=== PATIENT | female | born 1965 | race African-American/Black ===

== ENCOUNTER 2024-09-13 10:35 | Outpatient (REF) | payer OTHER, MEDICARE, MEDICAID, SELFPAY ==
[2024-09-13 11:37] LABS: Hematocrit 43.5 % (37.0-47.0); Hemoglobin 14.1 g/dl (12.0-16.0); Mean Corpuscular HGB Conc 32.4 g/dl (31.0-35.0); Mean Corpuscular Hemoglobin 30.5 pg (27.0-33.0); Mean Corpuscular Volume 94.2 fL (80.0-98.0); Mean Platelet Volume 8.8 fL (9.4-12.3); Platelet Count 344 X10*3/uL (160-400); Red Blood Count 4.62 X10*6/uL (4.20-5.50); Red Cell Distribution Width 13.8 % (11.0-16.0); White Blood Count 3.3 X10*3/uL (4.8-10.8)
[2024-09-13 13:14] LABS: Alanine Aminotransferase 30 U/L (0-31); Albumin Level 4.3 g/dL (3.5-5.0); Alkaline Phosphatase 70 U/L (39-117); Aspartate Amino Transferase 30 U/L (5-31); Bilirubin Direct 0.1 mg/dL (0.0-0.5); Bilirubin Total 0.4 mg/dL (0.0-1.0); Total Protein 7.3 g/dL (6.5-8.0)
== END 2024-09-13 10:36 | disposition home or self-care (01) ==
LOC: HO.LAB 10:35
PROVIDERS: PCP Internal Medicine; Visit Provider Psychiatry & Neurology Neurology
DX: G36.0 Neuromyelitis optica [Devic] (principal)
CPT/HCPCS: 36415; 80076; 85027

== ENCOUNTER 2025-04-14 10:29 | Outpatient (AMB) | payer MEDICARE, MEDICAID, SELFPAY ==
--- NOTE | 2025-04-14 10:44 | A.OFFVIS_ITS ---
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 Her neurological problem started in 1999 when she developed blurred vision in both eyes. In 2001, she devloped low back pain with numbness and paralysis of both legs. She was admitted at [facility] for a month and then went to [facility] for two months. She said that she had some recovery and she could stand with a walker and could take couple of steps. She was given diagnosis of Devic's syndrome in 2006. Since then, she has been treated with Imuran and had plasmapharesis couple of times to manage replapses. She used to see Dr. Garcia. MRI of brain, cervical, and thoracic spine were done in May 2024, which did not reveal any brain abnormality. Cervical and thoracic spine MRIs revealed cord atrophy but no diefinite cord signal abnormality. Her serum AQP4 titre was high and anti MOG was negative. She is presenting with chronic pain. She reports a persistent burning sensation that originates from her rib cage and extends down to her toes. The pain is described as continuous and has been present for an extended period. She notes that previous pharmacological interventions, including gabapentin, carbamazepine, opioids, and Durogesic patches, have been ineffective in managing the pain. Additionally, the use of OxyContin was mentioned to cause drowsiness and constipation without significant pain relief. The patient has experimented with alternative therapies such as cannabis edibles to aid in sleep, noting some improvement in falling asleep, though the pain remains ongoing. The pain has reportedly necessitated a referral consideration for a spinal cord stimulator, although documentation of previous management is required before proceeding. The patient has also been managing symptoms associated with menopause, specifically episodes of being hot and sweaty, contributing to disrupted sleep. The onset of these menopausal symptoms is unspecified. Neurogenic bladder requiring intermittent straight catheterization five times daily due to incomplete bladder emptying was discussed. The patient has mentioned that constipation exacerbates her bladder management routine. [facility] Medical History (Updated 04/14/25 @ 10:53 by Gary Quiñonez MD) Myelopathy Paraplegia Spastic bladder Neuromyelitis Review of Systems Const Details: - Musculoskeletal: Reports chronic pain, burning sensation from rib cage to toes. - Neurological: Reports managing neurogenic bladder, intermittent catheterization; denies improvement with previously tried medications like ga bapentin and opioids. - Genitourinary: Reports bladder control through self-catheterization. - Endocrine: Reports symptoms of menopause including hot flashes and sweating. - Sleep: Reports difficulty sleeping, describes it as so, so due to menopause. Physical Exam Neuro Other: Mental Status: Alert and oriented to person, place, and time. Normal attention. Normal spontaneous speech, fluency, and comprehension. No obvious issues with mood and memory. Affect is appropriate. Cranial Nerves: CN II: Visual quevedo full to confrontation, visual acuity intact. CN III, IV, : Pupils equal, round, reactive to light and accommodation. Extraocular movements are normal. CN V: Facial sensation is normal. CN VII: Facial movements symmetrical. CN VIII: Hearing intact to bedside conversation is normal. CN IX, X: Palate elevates symmetrically. CN XI: Shoulder shrug and head turn symmetrical. CN XII: Tongue midline without atrophy or fasciculations. She is in wheel chair with paraparesis, left leg worse than right. Extrapyramidal: Full facial expressions and blinking. No rigidity. Movements are appropriate with no tremor or abnormality. Speech: Normal; no dysarthria or tremor. Assessment & Plan Assessment & Plan (1) Neuromyelitis optica spectrum disorder: Comment: Labs at [facility] in May 2024: Anti AQP4 High, Anti MOG ok. MRI brain [facility] at [place] in May 2024: OK MRI C + T spine [facility] at [facility] in May 2024: Lower cervical and upper thoracic cord atrophy. I am not sure if there is any cord signal abnormality more than the central canal. MRI T spine at [facility] in 2004: C and T spinal cord hyperintense irreg signal reported but I am not sure about it, and thinning of lower cervical and thoracic cord MRI C spine in 2011: Mildly prominent central canal. Code(s): G36.0 - Neuromyelitis optica [Devic] Category: Medical (2) Neuropathic pain: Comment: Meds tried: Gabapentin, Carbamazepine, Oxycontin, Fentanyl, amitriptyline Code(s): M79.2 - Neuralgia and neuritis, unspecified Category: Medical Plan Impression: a: Neuromyelitis optica syndrome b: Paraplegia from above c: Neuropathic pain from above Rec: a: Azathioprine 50mg bid b: CBC/LFTs c: Trial of duloxetine or pregabilin I discussed with the patient the ongoing management of her chronic pain syndrome, emphasizing the importance of documenting previous pain management trials to support consideration for a spinal cord stimulator referral. I proposed trying duloxetine (Cymbalta) for a month to assess efficacy, with plans to switch to pregabalin if needed. These discussions included the realistic expectations of the treatments in terms of symptom relief. Additionally, the approach for neurogenic bladder relies on continued self-catheterization, with attention to possible exacerbation by constipation, potentially requiring modification of her bowel routine. Return precautions and follow-up outlines were provided should treatments become ineffective, unchanged, or if complications arise. Orders: Orders Complete Blood Count Auto Diff Today G36.0 - Neuromyelitis optica [Devic] Liver Panel Today G36.0 - Neuromyelitis optica [Devic] Medications: New duloxetine 20 mg PO BID 60 caps 0RF Coding Level of Care Code Est Pt Level 5 (07327) Diagnoses Neuromyelitis optica spectrum disorder G36.0 Neuropathic pain M79.2
--- OUTSIDE RECORDS SUMMARY | 2025-04-14 13:00 | XMS_ITS | Clinical Summary ---
Author Organization [facility] [address] [facility] Address [address] [place] [address] Phone Care Team Providers Care Corporate Giving Manager Name Role Phone Christophe Infante MD Primary Care Provider [phone] Allergies No known active allergies Medications azaTHIOprine (IMURAN) 50 mg tablet Take 1 tablet (50 mg total) by mouth. 4 Active Yuvafem 10 mcg tablet vaginal tablet INSERT 1 TABLET VAGINALLY 2 TIMES A WEEK 4 Active levothyroxine (SYNTHROID, LEVOTHROID) 125 mcg tablet Take 1 tablet (125 mcg total) by mouth 1 (one) time each day. 4 Active lisinopril (PRINIVIL,ZESTRI L) 40 mg tablet Take 1 tablet (40 mg total) by mouth 1 (one) time each day. 4 Active methenamine hippurate (HIPREX) 1 gram tablet 1 TABLET TWICE A DAY 4 Active Myrbetriq 25 mg 24 hr tablet Take 1 tablet (25 mg total) by mouth 1 (one) time each day in the morning. 4 Active Linzess 290 mcg capsuleIndicatio ns:Constipation, unspecified constipation type Take 1 capsule (290 mcg total) by mouth 1 (one) time each day. 90 each 1 5 025 Active polyethylene glycol (Golytely) 236-22.74-6.74 -5.86 gram solution Take 4L by mouth once for one dose. May substitue any PEG. Starting at 2PM the day before your procedure drink 1 8oz glasses at your own pace until you complete half of the gallon. Finish 2nd half of the gallon at 8PM. 4000 mL 5 Active bisacodyL (DULCOLAX) 5 mg EC tablet Take 2 tablets by mouth right before beginning bowel prep. See instructions provided by the office 2 tablet 5 Active doxycycline (VIBRAMYCIN) 100 mg capsule TAKE ONE CAPSULE BY MOUTH TWICE DAILY WITH FOOD FOR 3 MONTHS Active Encounters Date Type Department Care Team Description 03/11/2025 12:44 PM EDT Anesthesia Event [facility] Endoscopy [address] [place] [id number] Radhika Ardon MD 03/11/2025 12:04 PM EDT - 03/11/2025 11:59 PM EDT Hospital Encounter [facility] Endoscopy [address] [place] [phone] Isrrael Leggett MD Gomes, Sheldon B, MD Claudio, Raymund, CRNA Hx of colonic polyps; Family hx of colon cancer; Family history of colonic polyps Discharge Disposition: Home or Self Care from Last 3 Months Surgical History Surgery Date Site/Laterality Comments HYSTERECTOMY PARATHYROIDECTOMY COLONOSCOPY Medical History Medical History Date Comments Hyperlipidemia Devic's disease (CMS/HCC V24, CMS/[facility] V28) History of urinary self-catheterization Graves disease Family history of colon cancer Colon polyp Social History Tobacco Use Types Packs/Day Years Used Date Smoking Tobacco: Never Assessed Comments No Sex and Gender Information Value Date Recorded Sex Assigned at Female 05/31/2024 3:38 PM EST Legal Sex Female 8:01 AM EST Gender Identity Female 05/31/2024 3:38 PM EST Sexual Orientation Not on file Obstetrics History Last Filed Vital Signs Vital Sign Reading Time Taken Comments Blood Pressure 140/90 03/11/2025 1:29 PM EDT Pulse 82 03/11/2025 1:29 PM EDT Temperature 36.1 C (97 F) 03/11/2025 1:09 PM EDT Respiratory Rate 16 03/11/2025 1:29 PM EDT Oxygen Saturation 98% 03/11/2025 1:29 PM EDT Inhaled Oxygen Concentration - - Weight 76.7 kg (169 lb) 03/11/2025 12:36 PM EDT Height 165.1 cm (5' 5 ) 03/11/2025 12:36 PM EDT Body Mass Index 28.12 03/11/2025 12:36 PM EDT Plan of Treatment Health Maintenance Due Date Last Done Comments Breast Cancer Screening 1965 DTaP,Tdap,and Td Vaccines (1 - Tdap) 1985 Hepatitis B Vaccines (1 of 3 - 19+ 3-dose series) 1985 Cervical Cancer Screening: Pap Smear 11/02/1987 RSV Immunization Adult Patients (1 - Risk 50-74 years 1-dose series) 2016 HIV Screening 07/30/2023 Hepatitis C Screening 07/30/2023 Medicare Annual Wellness Visit 07/30/2023 Social Influencers of Health Screening 07/30/2023 Depression Screening 06/30/2024 COVID-19 Vaccine ( season) 2025 04/11/2023, 07/11/2022, 09/28/2021, Additional history exists Influenza Vaccine (#1) 2025 , 07/11/2022, 03/19/2021, Additional history exists Colorectal Cancer Screening: Colonoscopy 03/11/2030 03/11/2025, 02/25/2025 Zoster Vaccines Completed 01/16/2018, 11/10/2017 Pneumococcal Vaccine: 50+ Years Completed 03/04/2024, 03/23/2019, 06/30/2011, Additional history exists Colorectal Cancer Screening: CT Colonography Discontinued 05/03/2024 HIB Vaccines Aged Out No longer eligi ble based on patient's age to complete this topic HPV Vaccines Aged Out No longer eligi ble based on patient's age to complete this topic Hepatitis A Vaccines Aged Out No long er eligible based on patient's age to complete this topic IPV Vaccines Aged Out No longer eligi ble based on patient's age to complete this topic MMR Vaccines Aged Out No longer eligi ble based on patient's age to complete this topic Meningococcal ACWY Vaccine Aged Out N o longer eligible based on patient's age to complete this topic Meningococcal B Vaccine Aged Out No l onger eligible based on patient's age to complete this topic RSV Immunization Patients Under 20 months Aged Out No longer eligible based on patient's age to complete this topic Varicella Vaccines Aged Out No longer eligible based on patient's age to complete this topic Procedures Procedure Name Priority Date/Time Associated Diagnosis Comments COLONOSCOPY Routine 03/11/2025 1:08 PM EDT Hx of colonic polyps Family hx of colon cancer Family history of colonic polyps TISSUE EXAM Routine 03/11/2025 1:01 PM EDT Hx of colonic polyps Family hx of colon cancer Family history of colonic polyps EXTERNAL COLONOSCOPY REPORT Routine 02/25/2025 10:[address] COLONOGRAPHY SCREENING Routine 05/03/2024 Colon cancer screening from Last 3 Months or Most Recently Relevant to Health Maintenance Results * COLONOSCOPY Anesthesia - MAC; [facility] ENDOSCOPY (03/11/2025 1:08 PM EDT) Anatomical Region Laterality Modality Other 03/11/2025 12:3 5 PM EDT Impressions 03/11/2025 1:09 PM EDT - Nodular mucosa in the proximal rectum and in the recto-sigmoid colon. Biopsied. - Diverticulosis in the sigmoid colon. - Non-bleeding internal hemorrhoids. - The examination was otherwise normal on direct and retroflexion views. Recommendation: - Discharge patient to home. - Resume previous diet. - Continue present medications. - Await pathology results. - Repeat colonoscopy for surveillance based on pathology results. - Return to GI office PRN. Narrative 03/11/2025 1:09 PM EDT [facility] GI Patient Name: Julius Gonzalez Procedure Date: 03/11/2025 12:35 PM Date of : 1965 Age: 59 Room: ROOM 14 Gender: Female Note Status: Finalized Attending MD: Isrrael Leggett MD, Procedure Date No Time: 03/11/2025 Procedure: Colonoscopy Indications: Screening for colorectal malignant neoplasm Providers: Isrrael Leggett MD Referring MD: Isrrael Leggett MD Medicines: Monitored Anesthesia Care Complications: No immediate complications. Estimated Blood Loss: Estimated blood loss: none. Procedure: Pre-Anesthesia Assessment: - ASA Grade Assessment: II - A patient with mild systemic disease. - After reviewing the risks and benefits, the patient was deemed in satisfactory condition to undergo the procedure. After I obtained informed consent, the scope was passed under direct vision. Throughout the procedure, the patient's blood pressure, pulse, and oxygen saturations were monitored continuously.The Olympus Pediatric Colonoscope was introduced through the anus and advanced to the cecum, identified by appendiceal orifice and ileocecal valve. The colonoscopy was performed without difficulty. The patient tolerated the procedure well. The quality of the bowel preparation was adequate. Findings: A patchy area of severely nodular mucosa was found in the proximal rectum and in the recto-sigmoid colon. Biopsies were taken with a cold forceps for histology. Estimated blood loss was minimal. Scattered small-mouthed diverticula were found in the sigmoid colon. Non-bleeding internal hemorrhoids were found during retroflexion. The hemorrhoids were small. The exam was otherwise without abnormality on direct and retroflexion views. Procedure Code(s): --- Professional --- 67016, Colonoscopy, flexible; with biopsy, single or multiple Diagnosis Code(s): --- Professional --- Z12.11, Encounter for screening for malignant neoplasm of colon CPT copyright 2020 [employer]. All rights reserved. The codes documented in this report are preliminary and upon retail leasing agent review may be revised to meet current compliance requirements. Isrrael Leggett MD 03/11/2025 1:09:20 PM This report has been signed electronically.Isrrael Leggett MD Number of Addenda: 0 Note Initiated On: 03/11/2025 12:35 PM Scope In: Scope Out: Endoscopy Department at [facility] - [address] [place] [id number] Procedure Note Isrrael Leggett MD - 03/11/2025 [facility] GI Patient Name: Julius Gonzalez Procedure Date: 03/11/2025 12:35 PM Date of : 1965 Age: 59 Room: ROOM 14 Gender: Female Note Status: Finalized Attending MD: Isrrael Leggett MD, Procedure Date No Time: 03/11/2025 Procedure: Colonoscopy Indications: Screening for colorectal malignant neoplasm Providers: Isrrael Leggett MD Referring MD: Isrrael Leggett MD Medicines: Monitored Anesthesia Care Complications: No immediate complications. Estimated Blood Loss: Estimated blood loss: none. Procedure: Pre-Anesthesia Assessment: - ASA Grade Assessment: II - A patient with mild systemic disease. - After reviewing the risks and benefits, thepatient was deemed in satisfactory condition to undergo the procedure. After I obtained informed consent, the scope was passed under direct vision. Throughout theprocedure, the patient's blood pressure, pulse, and oxygen saturations were monitored continuously.The Olympus Pediatric Colonoscope was introduced through theanus and advanced to the cecum, identified byappendiceal orifice and ileocecal valve. The colonoscopy was performed without difficulty. The patient tolerated the procedure well. The quality of the bowel preparation was adequate. Findings: A patchy area of severely nodular mucosa was foundin the proximal rectum and in the recto-sigmoid colon. Biopsies were taken with a cold forceps forhistology. Estimated blood loss was minimal. Scattered small-mouthed diverticula were found inthe sigmoid colon. Non-bleeding internal hemorrhoids were found during retroflexion. The hemorrhoids were small. The exam was otherwise without abnormality ondirect and retroflexion views. Procedure Code(s): --- Professional --- 01783, Colonoscopy, flexible; with biopsy, singleor multiple Diagnosis Code(s): --- Professional --- Z12.11, Encounter for screening for malignantneoplasm of colon CPT copyright 2020 [employer]. All rights reserved. The codes documented in this report are preliminary and upon retail leasing agent reviewmay be revised to meet current compliance requirements. Isrrael Leggett MD 03/11/2025 1:09:20 PM This report has been signed electronically.Isrrael Leggett MD Number of Addenda: 0 Note Initiated On: 03/11/2025 12:35 PM Scope In: Scope Out: Endoscopy Department at [facility] - [address] [place] [phone] IMPRESSION: - Nodular mucosa in the proximal rectum and in the recto-sigmoid colon. Biopsied. - Diverticulosis in the sigmoid colon. - Non-bleeding internal hemorrhoids. - The examination was otherwise normal on directand retroflexion views. Recommendation: - Discharge patient to home. - Resume previous diet. - Continue present medications. - Await pathology results. - Repeat colonoscopy for surveillance based on pathology results. - Return to GI office PRN. us Isrrael Leggett MD GI~PROCEDURE ORDERABLES Final Result * Tissue exam (03/11/2025 1:01 PM EDT) Final Diagnosis Colon, nodular area, rectal biopsies: Ulcerated colonic mucosa with acute inflammation, abundant fibrinopurulent exudate, and prolapse like changes. No infectious etiology identified. No dysplasia or neoplasia identified. 03/14/2025 3:45 PM EDT [facility] Comment The differential diagnosis includes mechanical, infectious, and iatrogenic etiologies. Scattered bacterial colonies are identified, but are difficult to ascribe meaning to in the rectal mucosa. No viral cytopathic changes are identified. Correlation with clinical course is recommended. 03/14/2025 3:45 PM EDT [facility] Gross Description A. Colon, nodular rectal biopsies: Labeled nodular r colon . Received in formalin is a 0.7 x 0.25 x 0.1 cm aggregate of soft to friable simms-white simms-pink tissue fragments, which are wrapped in paper and submitted in toto in one cassette, multiple pieces, multiple levels. TS 03/14/2025 3:45 PM EDT [facility] Disclaimer Unless otherwise specified, all tissue is 10% NB formalin fixed and paraffin embedded. 03/14/2025 3:45 PM EDT [facility] Tissue Colon structure / Unknown 03/11/2025 1:01 PM EDT 03/11/2025 3:00 PM EDT Isrrael Leggett MD LAB PATHOLOGY ORDERABLES Chiara l Result [facility] [address] [place] [address], * External Colonoscopy Report (02/25/2025 10:50 AM EDT) Anatomical Region Laterality Modality Endoscopy Historical Provider GI~PROCEDURE ORDERABLES F inal Result * CT Colonography Screening (05/03/2024) Anatomical Region Laterality Modality Body Computed Tomogra phy Michael Rizo MD IMG CT PROCEDURES Final Result from Last 3 Months or Most Recently Relevant to Health Maintenance Insurance MEDICARE [place]ICAID - [place] [employer] Care Teams Corporate Giving Manager Relationship Specialty Start Date End Date Christophe Infante MD [address] [place] [phone] PCP - General Internal Medicine 03/01/25
--- OUTSIDE RECORDS SUMMARY | 2025-04-14 13:00 | XMS_ITS | Patient Health Record ---
Author Organization [facility] Address [address] [place] [address] Care Team Providers Care Proctologist Name Role Phone Christophe Infante MD Primary Care Provider Unavailab epi BurtonElizli Unavailable [phone] Allergies No Known Allergies Results Component Value Reference Range Notes PDF Report Reviewed date:07/16/2024 02:09:48 PM Interpretation: Performing Lab:[facility], [address] [place] [address], Phone - [phone], Director - Kinsey Notes/Report: Clinical Information:FAST 12-14 HOURS [id number] Reviewed date:07/16/2024 02:11:17 PM Interpretation: Performing Lab:[facility], [address] [place] [address], Phone - [phone], Director - Kinsey Notes/Report: Clinical Information:FAST 12-14 HOURS TSH 3.740 0.450-4.500 uIU/mL CBC With Differential/Platel et-[id number] Reviewed date:07/16/2024 02:10:04 PM Interpretation: Performing Lab:[facility], [address] [place] [address], Phone - [phone], Director - Kinsey Notes/Report: Clinical Information:FAST 12-14 HOURS WBC 3.0 3.4-10.8 x10E3/uL RBC 4.72 3.77-5.28 x10E6/uL Hemoglobin 14.4 11.1-15.9 g/dL Hematocrit 45.2 34.0-46.6 % MCV 96 79-97 fL MCH 30.5 26.6-33.0 pg MCHC 31.9 31.5-35.7 g/dL RDW 13.6 11.7-15.4 % Platelets 337 150-450 x10E3/uL Neutrophils 30 Not Estab. % Lymphs 61 Not Estab. % Monocytes 8 Not Estab. % Eos 1 Not Estab. % Basos 0 Not Estab. % Neutrophils (Absolute) 0.9 1.4-7.0 x10E3/uL Lymphs (Absolute) 1.8 0.7-3.1 x10E3/uL Monocytes(Absolute) 0.2 0.1-0.9 x10E3/uL Eos (Absolute) 0.0 0.0-0.4 x10E3/uL Baso (Absolute) 0.0 0.0-0.2 x10E3/uL Immature Granulocytes 0 Not Estab. % Immature Grans (Abs) 0.0 0.0-0.1 x10E3/uL Hematology Comments: Note: Verifie d by microscopic examination. PTH, Intact-[id number] Reviewed date:07/16/2024 02:11:05 PM Interpretation: Performing Lab:[facility], [address] [place] [address], Phone - [phone], Director - Kinsey Notes/Report: Clinical Information:FAST 12-14 HOURS PTH, Intact 32 15-65 pg/mL Vitamin D, [id number] Reviewed date:07/16/2024 02:10:42 PM Interpretation: Performing Lab:[facility], [address] [facility], [place], Phone - [phone], Director - Kinsey Notes/Report: Clinical Information:FAST 12-14 HOURS Vitamin D, 25-Hydroxy 100.0 30.0-100.0 ng/mL Vitamin D deficiency has been defined by the [place] of [employer] and an Endocrine Society practice guideline as a level of serum 25-OH vitamin D less than 20 ng/mL (1,2). The Endocrine Society went on to further define vitamin D insufficiency as a level between 21 and 29 ng/mL (2). 1. IOM ([place] of [employer]). 2010. Dietary reference intakes for calcium and D. [place]: The National Academies Press. 2. Adair BONILLA, Devan CONWAY, Vasu GARCÍA, et al. Evaluation, treatment, and prevention of vitamin D deficiency: an Endocrine Society clinical practice guideline. JCEM. 2010; 96(7):1911-30. Comp. Metabolic Panel ([id number] Reviewed date:07/16/2024 02:10:19 PM Interpretation: Performing Lab:[facility], [address], [place], Phone - [phone], Director - Kinsey Notes/Report: Clinical Information:FAST 12-14 HOURS Glucose 89 70-99 mg/dL BUN 12 6-24 mg/dL Creatinine 0.88 0.57-1.00 mg/dL eGFR 77 >59 mL/min/1.73 BUN/Creatinine Ratio 14 9-23 Sodium 142 134-144 mmol/L Potassium 4.3 3.5-5.2 mmol/L Chloride 103 96-106 mmol/L Carbon Dioxide, Total 25 20-29 mmol/L Calcium 10.1 8.7-10.2 mg/dL Protein, Total 6.4 6.0-8.5 g/dL Albumin 4.4 3.8-4.9 g/dL Globulin, Total 2.0 1.5-4.5 g/dL Bilirubin, Total 0.5 0.0-1.2 mg/dL Alkaline Phosphatase 89 44-121 IU/L AST (SGOT) 22 0-40 IU/L ALT (SGPT) 20 0-32 IU/L Reason For Referral No Information Medications Medication SIG (Take, Route, Frequency, Duration) Notes Start Date End Date Status Multivitamin - 1 tablet Orally Once a day; Duration: 30 day(s) Active Calcium 1 ORAL daily; Durati on: -3 09/16/2012 Active Doxycycline Monohydrate 50 MG TAKE 1 TABLET BY MOUTH EVERY DAY WITH FOOD Oral; Duration: 90 Days Active Lisinopril 40 MG 1 tablet Orally Once a day Active Linzess Active Estradiol 10 MCG 1 tablet Vaginal Two times a Week; Duration: 90 days 03/18/2025 Active Imuran 50MG 1 ORAL three times d aily; Duration: 30 09/17/2013 Active Yuvafem 10 MCG 1 tablet Vaginal Two times a Week; Duration: 90 days 03/15/2024 Active Synthroid 125 MCG 1 Orally daily 09/16/2012 Active Colace 100MG 1 ORAL twice daily; Duration: -3 09/16/2012 Active Myrbetriq 25 MG 1 tablet Orally Once a day Active Social History Tobacco Use: Social History Observation Description Date Details (start date - stop date) Never Smoker NA - NA AUDIT-C (Standard) Question Answer Notes Did you have a drink contain ing alcohol in the past year? Yes How often did you have a dri nk containing alcohol in the past year? 2 to 3 times a week (3 points) How many drinks did you have on a typical day when you were drinking in the past year? 1 or 2 drinks (0 point) How often did you have six o r more drinks on one occasion in the past year? 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 Major Problem Hypothyroidism (44169572) Unspecified hypothyroidism (244.9) Active confirmed Major Problem Neuromyelitis optica (39618062) Neuromyelitis optica (341.0) Active confirmed Major Problem Gynecological examination normal (370797905863164) Routine gynecological examination (V72.31) Active confirmed Vital Signs Temperature 97.5 degrees Fahrenheit 03/18/2025 Blood pressure diastolic 88 mm Hg 03/18/2025 Height 64.5 in 03/18/2025 Blood pressure systolic 128 mm Hg 03/18/2025 Weight 169 lbs 03/18/2025 BMI 28.56 kg/m2 03/18/2025 Encounters Encounter Location Date Provider Diagnosis [facility] [employer] [place] [address] [employer] [address] [address] 08/04/2024 Sara Burton Other specified disorders of bone density and structure, multiple sites M85.89 [place] [employer] [place] [address] [employer] [address] [address] 03/18/2025 Sara Burton Encounter for gynecological examination (general) (routine) without abnormal findings Z01.419 ; Encounter for screening mammogram for malignant neoplasm of breast Z12.31 ; Other specified disorders of bone density and structure, multiple sites M85.89 and Postmenopausal atrophic vaginitis N95.[address] [place] [address] 07/09/2024 Sara Burton Encounter for screening for osteoporosis Z13.820 Assessments Encounter Date Diagnosis (ICD Code) Assessment Notes Treatment Notes Treatment Clinical Notes Section Notes 07/09/2024 Encounter for screening for osteoporosis (ICD-10 - Z13.820) 08/04/2024 Other specified disorders of bone density and structure, multiple sites (ICD-10 - M85.89) DISCUSSED T-SCORES THROUGH THE YEARS AND HER LAST ONE SHOWING T-SCORE AT THE FEMOAL NECK BEING CLOSE TO OSTEOPOROSIS AND ITS IMPLICATIONS. DISCUSSED RESULTS OF ORTHO WORK UP. RECOMMENDED 1200 MG OF CALCIUM DAILY. HER VIT D LEVEL IS 100 IU/L AND SHE DOES NOT NEED VIT D REPLACEMENT. WEIGHT BEARING EXERCISES USING HER UPPER EXTREMITIES. REPEAT BMD IN 2025. 03/18/2025 Encounter for screening mammogram for malignant neoplasm of breast (ICD-10 - Z12.31) REGULAR MAMMOGRAMS AND SBE'S WERE RECOMMENDED. 03/18/2025 Encounter for gynecological examination (general) (routine) without abnormal findings (ICD-10 - Z01.419) NO MORE PAP TESTS. 03/18/2025 Other specified disorders of bone density and structure, multiple sites (ICD-10 - M85.89) DISCUSSED HER LATEST BMD AND WORSENING OSTEOPENIA AND ITS NEGATIVE IMPACT ON HER HEALTH. ADEQUATE CALCIUM AND VIT D. WEIGHT BEARING EXERCISES. REPEAT BMD IN 2026. 03/18/2025 Postmenopausal atrophic vaginitis (ICD-10 - N95.2) CONITNUE ESTRADIOL TABS 10 MCG TWICE WEEKLY. Plan Of Treatment Pending Test Test Name Order Date Ultrasound : Breast, left 08/09/2014 Mammogram, left breast 08/09/2014 Mammogram, left breast 08/03/2014 MAMMOGRAM, SCREENING 11/07/2014 Urinalysis 02/12/2018 BONE DENSITY 03/06/2023 BONE DENSITY 03/15/2024 [facility] Digital Mammo Screening 03/18/2025 MM Digital Mammo Screening 03/15/2024 MM Digital Mammo Screening 02/26/2021 MM Digital Mammo Screening 02/28/2022 MM Digital Mammo Screening 03/06/2023 MM Digital Mammo Screening 11/26/2016 Next Appt Details Provider Name:Sara gomez, 03/24/2026 10:20:00 AM, [address], [address], [place], [address], Insurance Providers Payer Name Payer Address Payer Phone Subscriber Number Group Number Insured Name Patient Relationship to Insured Coverage Start Date Coverage End Date [employer] [address] ASH PRATT [id number] NEENA GONZALEZ Spouse - patient is the spouse of the insured MEDICARE [address] LISE ANGEL [id number] JULIUS GONZALEZ Self - patient is the insured Medical (General) History Medical History History ICD Code Neuromyelitis optica [Devic] G36.0 Thyrotoxicosis with diffuse goiter witho ut thyrotoxic crisis or storm E05.00 Hypothyroidism, unspecified E03.9 Vulvar cyst N90.7 Menopausal and female climacteric states N95.1 Disorder of bone density and structure, unspecified M85.9 Mammographic calcification found on diag nostic imaging of breast R92.1 Rectocele N81.6 Cystocele, unspecified N81.10 Postmenopausal atrophic vaginitis N95.2 Other specified disorders of bone densit y and structure, multiple sites M85.89 Surgical History Surgery Date(Month/Year) Colonoscopy Total Vaginal Hysterectomy Hospitalization History Reason Date(Month/Year) See Surgical Hx 1 Vaginal Delivery
== END 2025-04-14 10:58 | disposition home or self-care (01) ==
LOC: HO.HSM 10:30
PROVIDERS: PCP Internal Medicine; Referring Provider Internal Medicine; Visit Provider Psychiatry & Neurology Neurology
DX: G36.0 Neuromyelitis optica [Devic] (principal); M79.2 Neuralgia and neuritis, unspecified
CPT/HCPCS: 99214

== ENCOUNTER → 2025-04-14 10:29 | Outpatient (BNVA) | payer OTHER, MEDICARE, MEDICAID, SELFPAY | PROVIDERS: PCP Internal Medicine; Referring Provider Internal Medicine; Visit Provider Psychiatry & Neurology Neurology | DX: G36.0 Neuromyelitis optica [Devic] (principal); M79.2 Neuralgia and neuritis, unspecified; Z99.3 Dependence on wheelchair | CPT/HCPCS: 99212 ==